=== PATIENT | male | born 1965 | race Hispanic/Latino ===

== ENCOUNTER 2016-08-07 12:51 | Emergency (ER) | payer OTHER, SELFPAY ==
[2016-08-07 13:19] LABS: #Basophils 0.1 thou/uL (0.0-0.2); #Eosinphils 0.1 thou/uL (0.0-0.7); #Lymphocytes 3.2 thou/uL (1.20-3.40); #Monocytes 0.7 thou/uL (0.11-0.59); #Neutrophils 4.5 thou/uL (1.40-6.50); %Basophils 1.4 % (0.0-1.0); %Eosinophils 1.5 % (0.0-10.0); %Lymphocytes 37.1 % (21.0-51.0); %Monocytes 8.5 % (0.0-10.0); %Neutrophils 51.5 % (42.0-75.0); Hemoglobin 14.3 g/dL (14.0-18.0); Mean Corpuscular HGB CONC 33.5 g/dL (32.0-36.0); Mean Corpuscular Hemoglobin 28.4 pg (27.0-31.0); Mean Corpuscular Volume 84.8 fl (80.0-94.0); Platelet Count 199 thou/uL (130-400); RBC Distribution Width 12.9 % (11.5-14.5); Red Blood Cell (RBC) Count 5.06 mill/uL (4.70-6.10); White Blood Cell (WBC) Count 8.7 thou/uL (4.8-10.8)
[2016-08-07] MEDS ORDERED: Ketorolac Tromethamine 30 MG/ML VIAL ONE (13:37)
[2016-08-07 13:39] LABS: Anion Gap 18 mmol/L (10-20); BUN (Urea Nitrogen) 16 mg/dL (8.9-20.6); Calc. Creatinine Clearance 0 mL/min (70-130); Calcium 9.1 mg/dL (7.8-10.44); Carbon Dioxide 21 mmol/L (22-29); Chloride 105 mmol/L (98-107); Estimated GFR-MDRD 68; Glucose 168 mg/dL (70-105); Sodium 141 mmol/L (136-145)
[2016-08-07 14:49] LABS: Bilirubin Negative (Negative); Blood, Urine Small (Negative); Glucose, Urine (Dipstick) Negative (Negative); Leukocyte Negative (Negative); Nitrite Negative (Negative); Protein, Urine (Dipstick) Negative (Neg-Trace); Urobilinogen 0.2 mg/dL (0.2-1.0)
[2016-08-07 14:50] LABS: Bacteria/HPF Rare-Few HPF (None Seen); Clarity Hazy (Clear); Squamous Epithelial None Seen HPF (0-3); WBC/HPF None Seen HPF (0-3)
== END 2016-08-07 15:00 | disposition home or self-care (01) ==
LOC: NAV ERS 12:51
DX: M54.6 Pain in thoracic spine (principal); Z87.442 Personal history of urinary calculi
CPT/HCPCS: 80048; 81003; 81015; 85025; 96361; 96374; J1885